=== PATIENT | male | born 1985 | race African-American/Black ===

== ENCOUNTER 2024-10-14 11:52 | Outpatient (CLI) | payer BC, SELFPAY ==
--- NOTE | ~2024-10-14 | CT_ITS ---
Non-contrast CT scan of the Abdomen Clinical indication: Umbilical hernia Technique: 2.5 mm axial scans were obtained through the abdomen without intravenous or oral contrast . Dose reduction technique was used on this scan by utilizing automated exposure control and iterativ e reconstruction technique. The dose-length product (DLP) was 706.47 mGy-cm. Findings: Images through the lung bases reveal no abnormalities. There is no evidence of renal or ureteral calculi. The kidneys and the ureters are nondilated. The liver, spleen, pancreas, gallbladder, and adrenals appear normal. There is no aortic aneurysm. S uggestion of minimal haziness in the central mesentery with small shotty lymph nodes. Visualized bowel loops are unremarkable.. No ascites. There is laxity of the anterior abdominal wall the umbilicus with diastases of the rectus abdominis muscles, without deborah hernia. Impression: Diastasis of the rectus abdominis muscles and laxity of the anterior abdominal wall without deborah her stephanie. 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 Reviewed, dictated and finalized at location M. CONTENT DEVELOPER Impression: Diastasis of the rectus abdominis muscles and laxity of the anterior abdominal wall without deborah hernia. 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
== END 2024-10-14 11:53 | disposition home or self-care (01) ==
PROVIDERS: PCP Surgery; Visit Provider Surgery
DX: M62.08 Separation of muscle (nontraumatic), other site (principal); K43.9 Ventral hernia without obstruction or gangrene
CPT/HCPCS: 74150

== ENCOUNTER 2024-11-13 10:01 | Outpatient (CLI) | payer BC, SELFPAY ==
--- OUTSIDE RECORDS SUMMARY | 2024-11-13 11:34 | XMS_ITS | Encounter Summary ---
Author Organization [facility] Address [facility] [place] [address] Care Team Providers Care [facility] Health [facility] Name Role Phone [facility] Primary Care Provider Filomena Shelley MD Primary Care Provider [phone] Encounter Details Date Type Department Care Team (Late st Contact Info) Description 11/02/2022 [employer] Message Enc [facility] Medical [employer] Family [address] [address] Anais Welch FNP-BC Question about meds Social History Tobacco Use Types Packs/Day Years Used Date Smoking Tobacco: Former Cigarettes 0.5 3 0 11/15/2005 - 11/15/2008 Smokeless Tobacco: Never Comments:I use to vape. For 1 year 2018 Alcohol Use Standard Drinks/Week Comments Yes 5 (1 standard drink = 0.6 oz pur e alcohol) Night caps PHQ-2 Answer Date Recorded Patient Health Questionnaire-2 Score 1 11/03/2022 Sex and Gender Information Value Date Recorded Sex Assigned at Not on file Legal Sex Male 8:56 AM CDT Gender Identity Not on file Sexual Orientation Not on file COVID-19 Exposure Response Date Recorded In the last 10 days, have yo u been in contact with someone who was confirmed or suspected to have Coronavirus/COVID-19? No / Unsure 11/03/2022 3:19 PM CHUTE PULLER documented as of this encounter Plan of Treatment Not on file documented as of this encounter Visit Diagnoses Not on filedocumented in this encounter Additional Health Concerns Assessment Noted Time PHQ-9 Depression Total Score: 0 07/20/20 21 8:02 AM CHUTE PULLER documented as of this encounter Care Teams Home Health Aid Relationship Specialty Start Date End Date Anais [facility] PCP - General NURSE PRACTITIONER 11/14/18 05/03/24 Filomena Warren MD [address] [place] [address] PCP - General FAMILY PRACTICE 05/04/24 documented as of this encounter
--- OUTSIDE RECORDS SUMMARY | 2024-11-13 11:34 | XMS_ITS | Encounter Summary ---
Author Organization [facility] Address [facility] [place] [address] Care Team Providers Care Venue Attendant Name Role Phone [facility] Primary Care Provider Filomena Shelley MD Primary Care Provider [phone] Encounter Details Date Type Department Care Team (Late st Contact Info) Description 07/09/2023 [employer] Message Enc [facility] Medical [facility] Family [address] [address] Anais Welch FNP-BC Blood work results Social History Tobacco Use Types Packs/Day Years Used Date Smoking Tobacco: Former Cigarettes 0.5 3 0 11/15/2005 - 11/15/2008 Smokeless Tobacco: Never Alcohol Use Standard Drinks/Week Comments Yes 2 (1 standard drink = 0.6 oz pur e alcohol) 2/week PHQ-2 Answer Date Recorded Patient Health Questionnaire-2 Score 0 07/05/2023 Sex and Gender Information Value Date Recorded Sex Assigned at Not on file Legal Sex Male 8:56 AM CDT Gender Identity Not on file Sexual Orientation Not on file documented as of this encounter Plan of Treatment Not on file documented as of this encounter Visit Diagnoses Not on filedocumented in this encounter Additional Health Concerns Assessment Noted Time PHQ-9 Depression Total Score: 0 07/05/20 23 1:23 PM CDT documented as of this encounter Care Teams Venue Attendant Relationship Specialty Start Date End Date Anais Welch FNP-BC PCP - General NURSE PRACTITIONER 11/14/18 05/03/24 Filomena Warren MD [address] [place] [address] PCP - General FAMILY PRACTICE 05/04/24 documented as of this encounter
--- OUTSIDE RECORDS SUMMARY | 2024-11-13 11:34 | XMS_ITS | Encounter Summary ---
Author Organization [facility] Address [facility] [place] [address] Care Team Providers Care Supply Chain Program Manager Name Role Phone Anais Welch Primary Care Provider Filomena Shelley MD Primary Care Provider [phone] Encounter Details Date Type Department Care Team (Late st Contact Info) Description 06/28/2023 [employer] Message Enc [facility] Medical [facility] Family [address] [address] Anais Welch FNP-BC Injury to hand Social History Tobacco Use Types Packs/Day Years [...] Total Score: 0 07/20/20 21 8:02 AM FACTORY MAINTENANCE MANAGER documented as of this encounter Care Teams Supply Chain Program Manager Relationship Specialty Start Date End Date Anais Welch FNP-BC PCP - General NURSE PRACTITIONER 11/14/18 05/03/24 Filomena Warren MD [address] [place] [address] PCP - General FAMILY PRACTICE 05/04/24 documented as of this encounter
--- OUTSIDE RECORDS SUMMARY | 2024-11-13 11:35 | XMS_ITS | Encounter Summary ---
Author Organization [facility] Address [facility] [place] [address] Care Team Providers Care Vat Cleaner Name Role Phone Anais Welch- Primary Care Provider Filomena Shelley MD Primary Care Provider [phone] Encounter Details Date Type Department Care Team (Late st Contact Info) Description 03/21/2024 Clip Message Enc [facility] Medical [facility] Family Medicine [address] [address] Anais Welch FNP-BC Pain in side Social History Tobacco Use Types Packs/Day Years [...] documented as of this encounter Care Teams Vat Cleaner Relationship Specialty Start Date End Date Anais Welch FNP-BC PCP - General NURSE PRACTITIONER 11/14/18 05/03/24 Filomena Warren MD [address] [place] [address] PCP - General FAMILY PRACTICE 05/04/24 documented as of this encounter
--- OUTSIDE RECORDS SUMMARY | 2024-11-13 11:35 | XMS_ITS | Encounter Summary ---
Author Organization [facility] Address [facility] [place] [address] Care Team Providers Care Heavy Equipment Rental Associate Name Role Phone Anais WelchGARY Primary Care Provider Filomena Shelley MD Primary Care Provider [phone] Encounter Details Date Type Department Care Team (Late st Contact Info) Description 05/28/2020 [employer] Message Enc [facility] Medical [facility] Family [address] [address] Anais Welch FNP-BC RE: Other Social History Tobacco Use Types Packs/Day Years Used Date Smoking Tobacco: Former Smokeless Tobacco: Never Alcohol Use Standard Drinks/Week Comments Yes 0 (1 standard drink = 0.6 oz pur e alcohol) socially PHQ-2 Answer Date Recorded PHQ-2 Score - If the patient scores above 3, please move on to questions 3-9 0 05/07/2020 Sex and Gender Information Value Date Recorded Sex Assigned at Not on file Legal Sex Male 8:56 AM CDT Gender Identity Not on file Sexual Orientation Not on file COVID-19 Exposure Response Date Recorded In the last month, have you been in contact with someone who was confirmed or suspected to have Coronavirus / COVID-19? No / Unsure 05/07/2020 8:57 AM CDT documented as of this encounter Plan of Treatment Not on file documented as of this encounter Visit Diagnoses Not on filedocumented in this encounter Care Teams Heavy Equipment Rental Associate Relationship Specialty Start Date End Date Anais Welch FNP-BC PCP - General NURSE PRACTITIONER 11/14/18 05/03/24 Filomena Warren MD [address] [place] [address] PCP - General FAMILY PRACTICE 05/04/24 documented as of this encounter
--- OUTSIDE RECORDS SUMMARY | 2024-11-13 11:35 | XMS_ITS | Clinical Summary ---
Author Organization [facility] Address [address] [place] [address] Care Team Providers Care Senior Applications Analyst Name Role Phone Filomena Warren MD Primary Care Provider [phone] Allergies No known active allergies Medications vitamin D2, ergocalciferol, (DRISDOL) 17007 UNITS capsuleIndicatio ns:Vitamin D deficiency TAKE 1 CAPSULE BY MOUTH ONE TIME PER WEEK 12 capsule 3 3 Active montelukast (SINGULAIR) 10 MG tabletIndication s:Seasonal allergies Take 1 tablet (10 mg total) by mouth nightly at bedtime. 90 tablet 2 3 Active fluticasone propionate (FLONASE) 50 MCG/ACT nasal sprayIndications :Seasonal allergies Gently sniff one to two spray(s)/nostri l daily 16 g 3 3 Active Additional Information Patient not taking.Reported on 07/05/2023 loratadine (CLARITIN) 10 MG tabletIndication s:Seasonal allergies Take 1 tablet (10 mg total) by mouth daily. 90 tablet 3 3 Active omeprazole (PRILOSEC) 40 MG capsuleIndicatio ns:Gastroesophag eal reflux disease with esophagitis without hemorrhage TAKE 1 CAPSULE (40 MG TOTAL) BY MOUTH DAILY. 90 capsule 1 3 Active Additional Information Patient not taking.Reported on 07/05/2023 L-Glutamine 500 MG Cap Take 1,000 mg by mouth 2 (two) times a day. Before and after workouts Active Nutritional Supplements (ADULT NUTRITIONAL SUPPLEMENT + OR) Take 3 tablets by mouth daily. Preworkout Active Glucosamine Sulfate 1000 MG Cap Take 1 tablet by mouth daily. Active Multiple Vitamins-Mineral s (MULTIVITAMIN ADULT, MINERALS,) Tab Take 1 tablet by mouth daily. Active Active Problems Patient Care Coordination No te Formatting of this note migh t be different from the original. [facility] [place] Problem Noted Date Diagnosed Date History of COVID-19 10/04/2022 Overview (10/04/2022): +01/14/22 Hypercholesteremia 07/20/2021 Seasonal allergies 02/05/2020 Sensorineural hearing loss (SNHL) of both ears 0 02/05/2020 Vitamin D deficiency 12/04/2018 Elevated liver enzymes 12/04/2018 Gastroesophageal reflux disease with esophagitis 11/25/2018 Frequent headaches 11/25/2018 Resolved Problems Problem Noted Date Diagnosed Date Resolved Date COVID-19 01/25/2022 10/04/2022 Overview (01/25/2022): Covid + 01/14/2022 Immunizations Name Administration Dates Next Due Fluzone 6 Months+ Quad (0.5 mL Prefilled Syringe) 07/05/2023,06/10/2021 Influenza Adult (Generic) 06/22/2019 PFIZER COVID-19 (ORIGINAL FO RMULATION, PURPLE CAP) mRNA, LNP-S, PF, 30 MCG/0.3 ML DOSE 08/03/2021,12/14/2020,11/23/2020 Family History Medical History Relation Comments Deep vein thrombosis Father Hypertension Father Cancer Maternal Aunt breast Alzheimers Maternal Grandfather Diabetes Maternal Grandfather Stroke Maternal Grandfather Alzheimers Maternal Grandmother Diabetes Maternal Grandmother Stroke Maternal Grandmother Cancer Maternal Uncle colon Diabetes Mother Heart Disease Mother Hypertension Mother Alzheimers Paternal Grandmother Relation Status Comments Father Alive Maternal Aunt Maternal Grandfather Maternal Grandmother Maternal Uncle Mother Alive Paternal Grandmother Social History Tobacco Use Types Packs/Day Years Used Date Smoking Tobacco: Former Cigarettes 0.5 3 0 11/15/2005 - 11/15/2008 Smokeless Tobacco: Never Tobacco Cessation:Counseling Given: No Alcohol Use Standard Drinks/Week Comments Yes 2 (1 standard drink = 0.6 oz pur e alcohol) 2/week PHQ-2 Answer Date Recorded Patient Health Questionnaire-2 Score 0 07/05/2023 Sex and Gender Information Value Date Recorded Sex Assigned at Not on file Legal Sex Male 8:56 AM CDT Gender Identity Not on file Sexual Orientation Not on file Last Filed Vital Signs Vital Sign Reading Time Taken Comments Blood Pressure 128/84 07/05/2023 1:10 PM CDT Pulse 92 07/05/2023 1:10 PM CDT Temperature 36.8 C (98.2 F) 11/03/2022 3:21 PM TELECOMMUNICATIONS ADMINISTRATOR Respiratory Rate 12 07/05/2023 1:10 PM CDT Oxygen Saturation 97% 07/05/2023 1:10 PM CDT Inhaled Oxygen Concentration - - Weight 125.6 kg (277 lb) 07/05/2023 1:10 PM CDT Height 193 cm (6' 4 ) 07/05/2023 1:10 PM CDT Body Mass Index 33.72 07/05/2023 1:10 PM CDT Plan of Treatment Health Maintenance Due Date Last Done Comments Hepatitis C 2003 DTaP, Tdap and Td Vaccines (1 - Tdap) 2004 Hepatitis B Vaccines (1 of 3 - 19+ 3-dose series) 2004 COVID-19 Vaccine ( season) 2024 08/03/2021, 12/14/2020, 11/23/2020 Influenza Adult (#1) 2024 07/05/2023, 06/10/2021, 06/22/2019 Annual Physical 07/05/2024 07/05/2023, 07/04, 05/07/2020, Additional history exists PHQ-2 (Physician [place]) 09/03/2024 07/05/2023 HPV Vaccines Aged Out No longer eligi ble based on patient's age to complete this topic Meningococcal B Vaccine Aged Out No l onger eligible based on patient's age to complete this topic Meningococcal Vaccine Aged Out No carlos yue eligible based on patient's age to complete this topic Pneumococcal Vaccine: Pediatrics (0 to 5 Years) and At-Risk Patients (6 to 64 Years) Aged Out No longer eligible based on patient's age to complete this topic RSV Immunizations Under 20 Months Aged Out No longer eligible based on patient's age to complete this topic Insurance [facility] Care Teams Senior Applications Analyst Relationship Specialty Start Date End Date Filomena Warren MD [address] [place] [address] PCP - General FAMILY PRACTICE 05/04/24
--- OUTSIDE RECORDS SUMMARY | 2024-11-13 11:35 | XMS_ITS | Patient Health Summary ---
Author Organization [facility] Address [address] [place] [address] Care Team Providers Care Prosthetist Name Role Phone Sera Alegre MD Primary Care Provider Note from [facility],non-owned Affiliates and Associated Physician Practices is amultiple site organization consisting of ambulatory clinics and hospital sitesin [place], [place], [place] and [place]. This disclosure is being madepursuant to the Care Everywhere program and may not contain all information available regarding this patient. Last updated 18.[facility] Allergies No known active allergies Medications * Be aware that medications may not be up to date on this document. Alwaysverify current medications with the patient. * Loratadine (Claritin) 10 MG(Started 09/24/2017) * montelukast (Singulair) 10 MG tablet(Started 09/24/2019) * vitamin D, ergocalciferol, (Drisdol) 1.25 MG (53234 UT) capsule Take 1 (one) capsule by mouth every 30 days Active Problems Problem Noted Date Diagnosed Date History of COVID-19 10/04/2022 Hypercholesteremia 07/20/2021 Seasonal allergies 02/05/2020 Sensorineural hearing loss (SNHL) of both ears 0 02/05/2020 Elevated liver enzymes 12/04/2018 Vitamin D deficiency 12/04/2018 Frequent headaches 11/25/2018 Gastroesophageal reflux disease with esophagitis 11/25/2018 Immunizations * INFLUENZA VACCINE(Given 06/25/2024) * INFLUENZA VACCINE, QUADR. (FLUZONE; FLULAVAL; FLUARIX; AFLURIA QUADRIVALENT; 6MO+), 0.5 ML (IIV4)(Given 07/05/2023, 06/10/2021, 06/22/2019) * INFLUENZA VACCINE, TRIV. (FLUZONE; FLULAVAL; FLUARIX; AFLURIA TRIVALENT; 6MO+), 0.5 ML (IIV3)(Given 09/24/2024) Social History Tobacco Use Types Packs/Day Years Used Date Smoking Tobacco: Never Smokeless Tobacco: Never Tobacco Cessation:Counseling Given: Not Answered Alcohol Use Standard Drinks/Week Comments Yes 5 (1 standard drink = 0.6 oz pur e alcohol) PHQ-2 Answer Date Recorded Patient Health Questionnaire-2 Score 0 09/24/2024 Sex and Gender Information Value Date Recorded Sex Assigned at Not on file Gender Identity Not on file Sexual Orientation Not on file Last Filed Vital Signs Vital Sign Reading Time Taken Comments Blood Pressure 134/84 09/24/2024 10:51 AM NET SQL DEVELOPER Pulse 80 09/24/2024 10:51 AM NET SQL DEVELOPER Temperature - - Respiratory Rate - - Oxygen Saturation 97% 09/24/2024 10:51 AM NET SQL DEVELOPER Inhaled Oxygen Concentration - - Weight 123.8 kg (273 lb) 09/24/2024 10:51 AM NET SQL DEVELOPER Height 193 cm (6' 4 ) 09/24/2024 10:51 AM NET SQL DEVELOPER Body Mass Index 33.23 09/24/2024 10:51 AM NET SQL DEVELOPER Procedures * HIV-1 HIV-2 ANTIBODY + HIV P24 AG PANEL(Performed 09/29/2024) Performed for Healthcare maintenance * HEPATITIS C ANTIBODY W RFLX PCR(Performed 09/29/2024) Performed for Healthcare maintenance * TSH REFLEX FREE T4(Performed 09/29/2024) Performed for Healthcare maintenance, Class 1 obesity due to excess calories with body mass index (BMI) of 33.0 to 33.9 in adult, unspecified whether serious comorbidity present * LIPID PROFILE(Performed 09/29/2024) Performed for Healthcare maintenance * HEMOGLOBIN A1C(Performed 09/29/2024) Performed for Healthcare maintenance, Class 1 obesity due to excess calories with body mass index (BMI) of 33.0 to 33.9 in adult, unspecified whether serious comorbidity present * COMPREHENSIVE METABOLIC PANEL(Performed 09/29/2024) Performed for Healthcare maintenance * CBC W AUTO DIFFERENTIAL(Performed 09/29/2024) Performed for Healthcare maintenance Results * HEPATITIS C ANTIBODY W RFLX PCR (09/29/2024 8:29 AM NET SQL DEVELOPER) Pathologist [facility] Hepatitis C Antibody Non Reactive Non Reactive [facility] INSURANCE BILL Comment: Performed at: [address] [place] [id number] Slat Basket Maker Helper Machine: Pipo Melo PhD, Phone: [phone] Interpretation Comment [facility] INSURANCE BILL Comment: Not infected with HCV unless early or acute infection is suspected (which may be delayed in an immunocompromised individual), or other evidence exists to indicate HCV infection. Blood BLOOD SPECIMEN / Unknown 09/29/2024 8:29 AM NET SQL DEVELOPER 09/29/2024 Narrative [facility] INSURANCE BILL - 09/30/2024 6:09 AM NET SQL DEVELOPER Performed at: [address] [place] [address] [id number] Slat Basket Maker Helper Machine: Pipo Melo PhD, Phone: [phone] Sera Alegre MD LAB - CHEMISTRY ORDERABLES Performing Organization Address City/[facility]/ZIP Co de Phone Number [facility] INSURANCE BILL [address] [place] [address] * HIV-1 HIV-2 ANTIBODY + HIV P24 AG PANEL (09/29/2024 8:29 AM NET SQL DEVELOPER) [facility] HIV Screen 4th Generation w Reflex Non Reactive Non Reactive [facility] INSURANCE BILL Comment: HIV-1/HIV-2 antibodies and HIV-1 p24 antigen were NOT detected. There is no laboratory evidence of HIV infection. HIV Negative Blood BLOOD SPECIMEN / Unknown 09/29/2024 8:29 AM NET SQL DEVELOPER 09/29/2024 Narrative [facility] INSURANCE BILL - 09/30/2024 6:09 AM NET SQL DEVELOPER Performed at: [address] [place] [address] [id number] Slat Basket Maker Helper Machine: Pipo Melo PhD, Phone: [phone] Sera Alegre MD LAB - CHEMISTRY ORDERABLES Performing Organization Address City/[facility]/ZIP Co de Phone Number [facility] INSURANCE BILL [address] [place] [address] * TSH REFLEX FREE T4 (09/29/2024 8:29 AM NET SQL DEVELOPER) Pathologist [facility] TSH 1.370 0.450 - 4.500 uIU/mL [facility] INSURANCE BILL Blood BLOOD SPECIMEN / Unknown 09/29/2024 8:29 AM NET SQL DEVELOPER 09/29/2024 Narrative [facility] INSURANCE BILL - 09/30/2024 6:09 AM NET SQL DEVELOPER Performed at: - [address] [id number] Slat Basket Maker Helper Machine: Pipo Melo PhD, Phone: [phone] Sera Alegre MD LAB - CHEMISTRY ORDERABLES Performing Organization Address [facility] Co de Phone Number [facility] INSURANCE BILL [address] [place] [address] * HEMOGLOBIN A1C (09/29/2024 8:29 AM NET SQL DEVELOPER) [facility] Hemoglobin A1c 5.5 4.8 - 5.6 % [facility] INSURANCE BILL Comment: Prediabetes: 5.7 - 6.4 Diabetes: >6.4 Glycemic control for adults with diabetes: <7.0 Blood BLOOD SPECIMEN WITH EDTA / Unknown 09/29/2024 8:29 AM NET SQL DEVELOPER 09/29/2024 Narrative [facility] INSURANCE BILL - 09/30/2024 6:09 AM NET SQL DEVELOPER Performed at: [address] [id number] Slat Basket Maker Helper Machine: Pipo Melo PhD, Phone: [phone] Sera Alegre MD LAB - CHEMISTRY ORDERABLES Performing Organization Address City/[facility] Co de Phone Number [facility] INSURANCE BILL [address] [place] [address] * CBC WITH DIFFERENTIAL (09/29/2024 8:29 AM NET SQL DEVELOPER) Pathologist [facility] WBC 5.6 3.4 - 10.8 x10E3/uL [facility] INSURANCE BILL RBC 4.64 4.14 - 5.80 x10E6/uL [facility] INSURANCE BILL Hemoglobin 14.5 13.0 - 17.7 g/dL [facility] INSURANCE BILL Hematocrit 42.9 37.5 - 51.0 % [facility] INSURANCE BILL MCV 93 79 - 97 fL [facility] INSURANCE BILL MCH 31.3 26.6 - 33.0 pg [facility] INSURANCE BILL MCHC 33.8 31.5 - 35.7 g/dL [facility] INSURANCE BILL RDW 13.0 11.6 - 15.4 % [facility] INSURANCE BILL Platelet Count 322 150 - 450 x10E3/uL [facility] INSURANCE BILL Granulocytes % 40 Not Estab. % [facility] INSURANCE BILL Lymphocytes % 44 Not Estab. % [facility] INSURANCE BILL Monocytes % 9 Not Estab. % [facility] INSURANCE BILL Eosinophils % 6 Not Estab. % [facility] INSURANCE BILL Basophils % 1 Not Estab. % [facility] INSURANCE BILL Granulocytes Absolute 2.2 1.4 - 7.0 x10E3/uL [facility] INSURANCE BILL Lymphocytes Absolute 2.4 0.7 - 3.1 x10E3/uL [facility] INSURANCE BILL Monocytes Absolute 0.5 0.1 - 0.9 x10E3/uL [facility] INSURANCE BILL Eosinophils Absolute 0.3 0.0 - 0.4 x10E3/uL [facility] INSURANCE BILL Basophils Absolute 0.0 0.0 - 0.2 x10E3/uL [facility] INSURANCE BILL Immature Granulocytes 0 Not Estab. % [facility] INSURANCE BILL Immature Granulocytes Absolute 0.0 0.0 - 0.1 x10E3/uL [facility] INSURANCE BILL Blood BLOOD SPECIMEN / Unknown 09/29/2024 8:29 AM NET SQL DEVELOPER 09/29/2024 Narrative [facility] INSURANCE BILL - 09/30/2024 12:06 AM NET SQL DEVELOPER Performed at: 01 - [facility] [address] [place] [address] [id number] Slat Basket Maker Helper Machine: Pipo Melo PhD, Phone: [phone] Sera Alegre MD LAB - HEMATOLOG Y ORDERABLES [facility] INSURANCE BILL [address] [place] [address] * COMPREHENSIVE METABOLIC PANEL (09/29/2024 8:29 AM NET SQL DEVELOPER) Glucose 94 70 - 99 mg/dL [facility] INSURANCE BILL BUN 15 6 - 20 mg/dL [facility] INSURANCE BILL Creatinine 1.22 0.76 - 1.27 mg/dL [facility] INSURANCE BILL eGFR by CKD-EPI 78 >59 mL/min/1.7 3 [facility] INSURANCE BILL BUN/Creatinine Ratio 12 9 - 20 [facility] INSURANCE BILL Sodium 138 134 - 144 mmol/L [facility] INSURANCE BILL Potassium 4.4 3.5 - 5.2 mmol/L [facility] INSURANCE BILL Chloride 101 96 - 106 mmol/L [facility] INSURANCE BILL CO2 24 20 - 29 mmol/L [facility] INSURANCE BILL Calcium 9.5 8.7 - 10.2 mg/dL [facility] INSURANCE BILL Protein Total 7.3 6.0 - 8.5 g/dL [facility] INSURANCE BILL Albumin 4.4 4.1 - 5.1 g/dL [facility] INSURANCE BILL Globulin Total 2.9 1.5 - 4.5 g/dL [facility] INSURANCE BILL Bilirubin Total 0.4 0.0 - 1.2 mg/dL [facility] INSURANCE BILL Alkaline Phosphatase 85 44 - 121 IU/L [facility] INSURANCE BILL AST 22 0 - 40 IU/L [facility] INSURANCE BILL ALT 28 0 - 44 IU/L [facility] INSURANCE BILL Blood BLOOD SPECIMEN / Unknown 09/29/2024 8:29 AM NET SQL DEVELOPER 09/29/2024 Narrative [facility] INSURANCE BILL - 09/30/2024 6:09 AM NET SQL DEVELOPER Performed at: [id number] [place], [place] [id number] Slat Basket Maker Helper Machine: Pipo Melo PhD, Phone: [phone] Sera Alegre MD LAB - CHEMISTRY ORDERABLES [facility] INSURANCE BILL [address] [place] [address] * (ABNORMAL) LIPID PROFILE (09/29/2024 8:29 AM NET SQL DEVELOPER) Cholesterol 205(H) 100 - 199 mg/dL [facility] INSURANCE BILL Triglycerides 172(H) 0 - 149 mg/dL [facility] INSURANCE BILL HDL Cholesterol 45 >39 mg/dL [facility] INSURANCE BILL VLDL Calculated 31 5 - 40 mg/dL [facility] INSURANCE BILL LDL Calculated 129(H) 0 - 99 mg/dL [facility] INSURANCE BILL Blood BLOOD SPECIMEN / Unknown 09/29/2024 8:29 AM NET SQL DEVELOPER 09/29/2024 Narrative [facility] INSURANCE BILL - 09/30/2024 6:09 AM NET SQL DEVELOPER Performed at: 01 - [address] [id number] Slat Basket Maker Helper Machine: Pipo Melo PhD, Phone: [phone] Sera Alegre MD LAB - CHEMISTRY ORDERABLES [facility] INSURANCE BILL [address] [place] [address] Care Teams Prosthetist Relationship Specialty Start Date End Date Sera Alegre MD [address] [place] [id number] PCP - General Internal Medicine 09/24/24
--- OUTSIDE RECORDS SUMMARY | 2024-11-13 11:35 | XMS_ITS | Referral Summary ---
Author Organization [facility] Address [address] [place] [address] Care Team Providers Care Exerciser Horse Name Role Phone Sera Alegre MD Primary Care Provider Source Comments [facility],non-owned Affiliates and Associated Physician Practices is amultiple site organization consisting of ambulatory clinics and hospital sitesin [place], [place], [place] and [place]. This disclosure is being madepursuant to the Care Everywhere program and may not contain all information available regarding this patient. Last updated 18.[facility] Encounters Date Type Department Care Team Description 09/24/2024 10:40 AM EQUIPMENT MAN Office Visit [facility] - Family Medicine [address] [facility] [address] [place] [address] Sera Alegre MD Encounter to establish care (Primary Dx); Healthcare maintenance; Class 1 obesity due to excess calories with body mass index (BMI) of 33.0 to 33.9 in adult, unspecified whether serious comorbidity present; Diastasis recti; Umbilical hernia without obstruction and without gangrene; Need for influenza vaccination from Last 3 Months Allergies No known active allergies Medications * Be aware that medications may not be up to date on this document. Alwaysverify current medications with the patient. Medication Sig Dispensed Refills Start Date End Date Status Loratadine (Claritin) 10 MG 09/24/2017 Active montelukast (Singulair) 10 MG tablet 09/24/2019 Active vitamin D, ergocalciferol, (Drisdol) 1.25 MG (73245 UT) capsule Take 1 (one) capsule by mouth every 30 days Active Active Problems Problem Noted Date Diagnosed Date History of COVID-19 10/04/2022 Overview (09/24/2024): +01/14/22 Hypercholesteremia 07/20/2021 Seasonal allergies 02/05/2020 Sensorineural hearing loss (SNHL) of both ears 0 02/05/2020 Elevated liver enzymes 12/04/2018 Vitamin D deficiency 12/04/2018 Frequent headaches 11/25/2018 Gastroesophageal reflux disease with esophagitis 11/25/2018 Immunizations Name Administration Dates Next Due INFLUENZA VACCINE 06/25/2024 INFLUENZA VACCINE, QUADR. (F LUZONE; FLULAVAL; FLUARIX; AFLURIA QUADRIVALENT; 6MO+), 0.5 ML (IIV4) 07/05/2023,06/10/2021,06/22/2019 INFLUENZA VACCINE, TRIV. (FL UZONE; FLULAVAL; FLUARIX; AFLURIA TRIVALENT; 6MO+), 0.5 ML (IIV3) 09/24/2024 Social History Tobacco Use Types Packs/Day Years [...] Comments Blood Pressure 134/84 09/24/2024 10:51 AM EQUIPMENT MAN Pulse 80 09/24/2024 10:51 AM EQUIPMENT MAN Temperature - - Respiratory Rate - - Oxygen Saturation 97% 09/24/2024 10:51 AM EQUIPMENT MAN Inhaled Oxygen Concentration - - Weight 123.8 kg (273 lb) 09/24/2024 10:51 AM EQUIPMENT MAN Height 193 cm (6' 4 ) 09/24/2024 10:51 AM EQUIPMENT MAN Body Mass Index 33.23 09/24/2024 10:51 AM EQUIPMENT MAN Plan of Treatment Not on file Procedures Procedure Name Priority Date/Time Associated Diagnosis Comments HIV-1 HIV-2 ANTIBODY + HIV P24 AG PANEL Routine 09/29/2024 8:29 AM EQUIPMENT MAN Healthcare maintenance HEPATITIS C ANTIBODY W RFLX PCR Routine 09/29/2024 8:29 AM EQUIPMENT MAN Healthcare maintenance TSH REFLEX FREE T4 Routine 09/29/2024 8: 29 AM EQUIPMENT MAN Healthcare maintenance Class 1 obesity due to excess calories with body mass index (BMI) of 33.0 to 33.9 in adult, unspecified whether serious comorbidity present LIPID PROFILE Routine 09/29/2024 8:29 AM EQUIPMENT MAN Healthcare maintenance HEMOGLOBIN A1C Routine 09/29/2024 8:29 AM EQUIPMENT MAN Healthcare maintenance Class 1 obesity due to excess calories with body mass index (BMI) of 33.0 to 33.9 in adult, unspecified whether serious comorbidity present COMPREHENSIVE METABOLIC PANEL Routine 09/29/2024 8:29 AM EQUIPMENT MAN Healthcare maintenance CBC W AUTO DIFFERENTIAL Routine 09/29/2024 8:29 AM EQUIPMENT MAN Healthcare maintenance from Last 3 Months Results * HEPATITIS C ANTIBODY W RFLX PCR (09/29/2024 8:29 AM EQUIPMENT MAN) Hepatitis C Antibody Non Reactive Non Reactive [facility] INSURANCE BILL Comment: Performed at: [address] [id number] Shot Hole Driller: Pipo Melo PhD, Phone: [phone] Interpretation Comment [facility] INSURANCE BILL Comment: Not infected with HCV unless early or acute infection is suspected (which may be delayed in an immunocompromised individual), or other evidence exists to indicate HCV infection. Blood BLOOD SPECIMEN / Unknown 09/29/2024 8:29 AM EQUIPMENT MAN 09/29/2024 Narrative [facility] INSURANCE BILL - 09/30/2024 6:09 AM EQUIPMENT MAN Performed at: [facility] [address] [id number] Shot Hole Driller: Pipo Melo PhD, Phone: [phone] Sera Alegre MD LAB - CHEMISTRY ORDERABLES Performing Organization Address City/[facility]/ZIP Co de Phone Number [facility] INSURANCE BILL [address] [place] [address] * HIV-1 HIV-2 ANTIBODY + HIV P24 AG PANEL (09/29/2024 8:29 AM EQUIPMENT MAN) [facility] HIV Screen 4th Generation w Reflex Non Reactive Non Reactive [facility] INSURANCE BILL Comment: HIV-1/HIV-2 antibodies and HIV-1 p24 antigen were NOT detected. There is no laboratory evidence of HIV infection. HIV Negative Blood BLOOD SPECIMEN / Unknown 09/29/2024 8:29 AM EQUIPMENT MAN 09/29/2024 Narrative [facility] INSURANCE BILL - 09/30/2024 6:09 AM EQUIPMENT MAN Performed at: [address] [place] [id number] Shot Hole Driller: Pipo Melo PhD, Phone: [phone] Sera Alegre MD LAB - CHEMISTRY ORDERABLES Performing Organization Address [facility] Co de Phone Number [facility] INSURANCE BILL [address] [place] [address] * TSH REFLEX FREE T4 (09/29/2024 8:29 AM EQUIPMENT MAN) [facility] TSH 1.370 0.450 - 4.500 uIU/mL [facility] INSURANCE BILL Blood BLOOD SPECIMEN / Unknown 09/29/2024 8:29 AM EQUIPMENT MAN 09/29/2024 Narrative [facility] INSURANCE BILL - 09/30/2024 6:09 AM EQUIPMENT MAN Performed at: [address] [place] [id number] Shot Hole Driller: Pipo Melo PhD, Phone: [phone] Sera Alegre MD LAB - CHEMISTRY ORDERABLES Performing Organization Address City/[facility]/ZIP Co de Phone Number [facility] INSURANCE BILL [address] [place] [address] * HEMOGLOBIN A1C (09/29/2024 8:29 AM EQUIPMENT MAN) [facility] Hemoglobin A1c 5.5 4.8 - 5.6 % [facility] INSURANCE BILL Comment: Prediabetes: 5.7 - 6.4 Diabetes: >6.4 Glycemic control for adults with diabetes: <7.0 Blood BLOOD SPECIMEN WITH EDTA / Unknown 09/29/2024 8:29 AM EQUIPMENT MAN 09/29/2024 Narrative [facility] INSURANCE BILL - 09/30/2024 6:09 AM EQUIPMENT MAN Performed at: - [facility] [id number] Shot Hole Driller: Pipo Melo PhD, Phone: [phone] Sera Alegre MD LAB - CHEMISTRY ORDERABLES [facility] INSURANCE BILL [address] [place] [address] * CBC WITH DIFFERENTIAL (09/29/2024 8:29 AM EQUIPMENT MAN) Pathologist [facility] WBC 5.6 3.4 - 10.8 x10E3/uL [facility] [...] BLOOD SPECIMEN / Unknown 09/29/2024 8:29 AM EQUIPMENT MAN 09/29/2024 Narrative [facility] INSURANCE BILL - 09/30/2024 12:06 AM EQUIPMENT MAN Performed at: 01 - [id number] [place], [place] [id number] Shot Hole Driller: Pipo Melo PhD, Phone: [phone] Sera Alegre MD LAB - HEMATOLOG Y ORDERABLES Performing Organization Address City/State/[facility] Co de Phone Number [facility] INSURANCE BILL [address] [place] [address] * COMPREHENSIVE METABOLIC PANEL (09/29/2024 8:29 AM EQUIPMENT MAN) Glucose 94 70 - 99 mg/dL [facility] [...] BLOOD SPECIMEN / Unknown 09/29/2024 8:29 AM EQUIPMENT MAN 09/29/2024 Narrative [facility] INSURANCE BILL - 09/30/2024 6:09 AM EQUIPMENT MAN Performed at: - [facility] [address] [id number] Shot Hole Driller: Pipo Melo PhD, Phone: [phone] Sera Alegre MD LAB - CHEMISTRY ORDERABLES [facility] INSURANCE BILL [address] [place] [address] * (ABNORMAL) LIPID PROFILE (09/29/2024 8:29 AM EQUIPMENT MAN) Cholesterol 205(H) 100 - 199 mg/dL [facility] INSURANCE BILL Triglycerides 172(H) 0 - 149 mg/dL [facility] INSURANCE BILL HDL Cholesterol 45 >39 mg/dL [facility] INSURANCE BILL VLDL Calculated 31 5 - 40 mg/dL [facility] INSURANCE BILL LDL Calculated 129(H) 0 - 99 mg/dL [facility] INSURANCE BILL Blood BLOOD SPECIMEN / Unknown 09/29/2024 8:29 AM EQUIPMENT MAN 09/29/2024 Narrative [facility] INSURANCE BILL - 09/30/2024 6:09 AM EQUIPMENT MAN Performed at: - [facility] [address] [id number] Shot Hole Driller: Pipo Melo PhD, Phone: [phone] Sera Alegre MD LAB - CHEMISTRY ORDERABLES [facility] INSURANCE BILL [address] [place] [address] from Last 3 Months Care Teams Exerciser Horse Relationship Specialty Start Date End Date Sera Alegre MD [address] [address] PCP - General Internal Medicine 09/24/24
--- OUTSIDE RECORDS SUMMARY | 2024-11-13 11:35 | XMS_ITS | Clinical Summary ---
Author Organization [facility] Address [address] [place] [address] Care Team Providers Care Shopfitter Name Role Phone Sera Alegre MD Primary Care Provider Source Comments [facility],non-owned Affiliates and Associated Physician Practices is amultiple site organization consisting of ambulatory clinics and hospital sitesin [place], [place], [place] and [place]. This disclosure is being madepursuant to the Care Everywhere program and may not contain all information available regarding this patient. Last updated 18.[facility] Allergies No known active allergies Medications * Be aware that medications may not be up to date on this document. Alwaysverify current medications with the patient. Medication Sig Dispensed Refills Start Date End Date Status Loratadine (Claritin) 10 MG 09/24/2017 Active montelukast (Singulair) 10 MG tablet 09/24/2019 Active vitamin D, ergocalciferol, (Drisdol) 1.25 MG (33082 UT) capsule Take 1 (one) capsule by mouth every 30 days Active Active Problems Problem Noted Date Diagnosed Date History of COVID-19 10/04/2022 Overview (09/24/2024): +01/14/22 Hypercholesteremia 07/20/2021 Seasonal allergies 02/05/2020 Sensorineural hearing loss (SNHL) of both ears 0 02/05/2020 Elevated liver enzymes 12/04/2018 Vitamin D deficiency 12/04/2018 Frequent headaches 11/25/2018 Gastroesophageal reflux disease with esophagitis 11/25/2018 Encounters Date Type Department Care Team Description 09/24/2024 10:40 AM BILINGUAL HR GENERALIST Office Visit [facility] Medical [facility] - Family Medicine [address] [facility], [address] [address] Sera Alegre MD Encounter to establish care (Primary Dx); Healthcare maintenance; Class 1 obesity due to excess calories with body mass index (BMI) of 33.0 to 33.9 in adult, unspecified whether serious comorbidity present; Diastasis recti; Umbilical hernia without obstruction and without gangrene; Need for influenza vaccination from Last 3 Months Immunizations Name Administration Dates Next Due INFLUENZA VACCINE 06/25/2024 INFLUENZA VACCINE, QUADR. (F LUZONE; FLULAVAL; FLUARIX; AFLURIA QUADRIVALENT; 6MO+), 0.5 ML (IIV4) 07/05/2023,06/10/2021,06/22/2019 INFLUENZA VACCINE, TRIV. (FL UZONE; FLULAVAL; FLUARIX; AFLURIA TRIVALENT; 6MO+), 0.5 ML (IIV3) 09/24/2024 Family History Medical History Relation Name Comments Anxiety Disorder Daughter Blood Clots Father Hypertension Father Diabetes - Type 2 Mother Hypertension Mother Bipolar Disorder Sister ADD/ADHD Son Relation Name Status Comments Daughter Alive Father Alive Mother Alive Sister Son Alive Social History Tobacco Use Types Packs/Day Years [...] Comments Blood Pressure 134/84 09/24/2024 10:51 AM BILINGUAL HR GENERALIST Pulse 80 09/24/2024 10:51 AM BILINGUAL HR GENERALIST Temperature - - Respiratory Rate - - Oxygen Saturation 97% 09/24/2024 10:51 AM BILINGUAL HR GENERALIST Inhaled Oxygen Concentration - - Weight 123.8 kg (273 lb) 09/24/2024 10:51 AM BILINGUAL HR GENERALIST Height 193 cm (6' 4 ) 09/24/2024 10:51 AM BILINGUAL HR GENERALIST Body Mass Index 33.23 09/24/2024 10:51 AM BILINGUAL HR GENERALIST Plan of Treatment Health Maintenance Due Date Last Done Comments DTAP/TDAP/TD VACCINES (1 - Tdap) 2004 HEPATITIS B VACCINE (1 of 3 - 19+ 3-dose series) 2004 COVID-19 VACCINE (4 - season) 2024 08/03/2021, 12/14/2020, 11/23/2020 ZOSTER VACCINE (1 of 2) 2035 DEPRESSION SCREENING Completed 09/24/2024 INFLUENZA VACCINE Completed 09/24/2024, , 07/05/2023, Additional history exists HEPATITIS C SCREENING Completed 09/29/2024 HIV SCREENING Completed 09/29/2024 HIB VACCINE Aged Out No longer eligi ble based on patient's age to complete this topic HPV VACCINE Aged Out No longer eligi ble based on patient's age to complete this topic MENINGOCOCCAL (Group B) VACCINE SHARED DECISION-MAKING Aged Out No longer eligible based on patient's age to complete this topic MENINGOCOCCAL GROUPS A/C/Y/W VACCINE Aged Out No longer eligible based on patient's age to complete this topic PNEUMOCOCCAL VACCINE Aged Out No long er eligible based on patient's age to complete this topic Procedures Procedure Name Priority Date/Time Associated Diagnosis Comments HIV-1 HIV-2 ANTIBODY + HIV P24 AG PANEL Routine 09/29/2024 8:29 AM BILINGUAL HR GENERALIST Healthcare maintenance HEPATITIS C ANTIBODY W RFLX PCR Routine 09/29/2024 8:29 AM BILINGUAL HR GENERALIST Healthcare maintenance TSH REFLEX FREE T4 Routine 09/29/2024 8: 29 AM BILINGUAL HR GENERALIST Healthcare maintenance Class 1 obesity due to excess calories with body mass index (BMI) of 33.0 to 33.9 in adult, unspecified whether serious comorbidity present LIPID PROFILE Routine 09/29/2024 8:29 AM BILINGUAL HR GENERALIST Healthcare maintenance HEMOGLOBIN A1C Routine 09/29/2024 8:29 AM BILINGUAL HR GENERALIST Healthcare maintenance Class 1 obesity due to excess calories with body mass index (BMI) of 33.0 to 33.9 in adult, unspecified whether serious comorbidity present COMPREHENSIVE METABOLIC PANEL Routine 09/29/2024 8:29 AM BILINGUAL HR GENERALIST Healthcare maintenance CBC W AUTO DIFFERENTIAL Routine 09/29/2024 8:29 AM BILINGUAL HR GENERALIST Healthcare maintenance from Last 3 Months Results * HEPATITIS C ANTIBODY W RFLX PCR (09/29/2024 8:29 AM BILINGUAL HR GENERALIST) Hepatitis C Antibody Non Reactive Non Reactive [facility] INSURANCE BILL Comment: Performed at: - [address] [id number] Energy Consultant: Pipo Melo PhD, Phone: [phone] Interpretation Comment [facility] INSURANCE BILL Comment: Not infected with HCV unless early or acute infection is suspected (which may be delayed in an immunocompromised individual), or other evidence exists to indicate HCV infection. Blood BLOOD SPECIMEN / Unknown 09/29/2024 8:29 AM BILINGUAL HR GENERALIST 09/29/2024 Narrative [facility] INSURANCE BILL - 09/30/2024 6:09 AM BILINGUAL HR GENERALIST Performed at: [address] [place] [id number] Energy Consultant: Pipo Melo PhD, Phone: [phone] Sera Alegre MD LAB - CHEMISTRY ORDERABLES [facility] INSURANCE BILL [address] [place] [address] * HIV-1 HIV-2 ANTIBODY + HIV P24 AG PANEL (09/29/2024 8:29 AM BILINGUAL HR GENERALIST) Pathologist [facility] HIV Screen 4th Generation w Reflex Non Reactive Non Reactive [facility] INSURANCE BILL Comment: HIV-1/HIV-2 antibodies and HIV-1 p24 antigen were NOT detected. There is no laboratory evidence of HIV infection. HIV Negative Blood BLOOD SPECIMEN / Unknown 09/29/2024 8:29 AM BILINGUAL HR GENERALIST 09/29/2024 Narrative [facility] INSURANCE BILL - 09/30/2024 6:09 AM BILINGUAL HR GENERALIST Performed at: [address] [place] [address], [place] [id number] Energy Consultant: Pipo Melo PhD, Phone: [phone] Sera Alegre MD LAB - CHEMISTRY ORDERABLES Performing Organization Address [facility] Co de Phone Number [facility] INSURANCE BILL [address] [place] [address] * TSH REFLEX FREE T4 (09/29/2024 8:29 AM BILINGUAL HR GENERALIST) Pathologist [facility] TSH 1.370 0.450 - 4.500 uIU/mL [facility] INSURANCE BILL Blood BLOOD SPECIMEN / Unknown 09/29/2024 8:29 AM BILINGUAL HR GENERALIST 09/29/2024 Narrative [facility] INSURANCE BILL - 09/30/2024 6:09 AM BILINGUAL HR GENERALIST Performed at: [address] [place] [id number] Energy Consultant: Pipo Melo PhD, Phone: [phone] Sera Alegre MD LAB - CHEMISTRY ORDERABLES Performing Organization Address [facility] Co de Phone Number [facility] INSURANCE BILL [address] [place] [address] * HEMOGLOBIN A1C (09/29/2024 8:29 AM BILINGUAL HR GENERALIST) [facility] Hemoglobin A1c 5.5 4.8 - 5.6 % [facility] INSURANCE BILL Comment: Prediabetes: 5.7 - 6.4 Diabetes: >6.4 Glycemic control for adults with diabetes: <7.0 Blood BLOOD SPECIMEN WITH EDTA / Unknown 09/29/2024 8:29 AM BILINGUAL HR GENERALIST 09/29/2024 Narrative [facility] INSURANCE BILL - 09/30/2024 6:09 AM BILINGUAL HR GENERALIST Performed at: [address] [id number] Energy Consultant: Pipo Melo PhD, Phone: [phone] Sera Alegre MD LAB - CHEMISTRY ORDERABLES Performing Organization Address City/[facility]/ZIP Co de Phone Number [facility] INSURANCE BILL [address] [place] [address] * CBC WITH DIFFERENTIAL (09/29/2024 8:29 AM BILINGUAL HR GENERALIST) WBC 5.6 3.4 - 10.8 x10E3/uL [facility] [...] BLOOD SPECIMEN / Unknown 09/29/2024 8:29 AM BILINGUAL HR GENERALIST 09/29/2024 Narrative [facility] INSURANCE BILL - 09/30/2024 12:06 AM BILINGUAL HR GENERALIST Performed at: - [address] [id number] Energy Consultant: Pipo Melo PhD, Phone: [phone] Sera Alegre MD LAB - HEMATOLOG Y ORDERABLES [facility] INSURANCE BILL [address] [place] [address] * COMPREHENSIVE METABOLIC PANEL (09/29/2024 8:29 AM BILINGUAL HR GENERALIST) Glucose 94 70 - 99 mg/dL [facility] [...] BLOOD SPECIMEN / Unknown 09/29/2024 8:29 AM BILINGUAL HR GENERALIST 09/29/2024 Narrative [facility] INSURANCE BILL - 09/30/2024 6:09 AM BILINGUAL HR GENERALIST Performed at: 01 - [address] [id number] Energy Consultant: Pipo Melo PhD, Phone: [phone] Sera Alegre MD LAB - CHEMISTRY ORDERABLES [facility] INSURANCE BILL [address] [place] [address] * (ABNORMAL) LIPID PROFILE (09/29/2024 8:29 AM BILINGUAL HR GENERALIST) Cholesterol 205(H) 100 - 199 mg/dL [facility] INSURANCE BILL Triglycerides 172(H) 0 - 149 mg/dL [facility] INSURANCE BILL HDL Cholesterol 45 >39 mg/dL [facility] INSURANCE BILL VLDL Calculated 31 5 - 40 mg/dL [facility] INSURANCE BILL LDL Calculated 129(H) 0 - 99 mg/dL [facility] INSURANCE BILL Blood BLOOD SPECIMEN / Unknown 09/29/2024 8:29 AM BILINGUAL HR GENERALIST 09/29/2024 Narrative [facility] INSURANCE BILL - 09/30/2024 6:09 AM BILINGUAL HR GENERALIST Performed at: 01 - [facility] [id number] Energy Consultant: Pipo Melo PhD, Phone: [phone] Sera Alegre MD LAB - CHEMISTRY ORDERABLES Performing Organization Address City/State/[facility] Co de Phone Number [facility] INSURANCE BILL [address] [place] [address] from Last 3 Months Care Teams Shopfitter Relationship Specialty Start Date End Date Sera Alegre MD [facility] [place] [address] PCP - General Internal Medicine 09/24/24
== END 2024-11-13 10:02 | disposition home or self-care (01) ==
LOC: ANHSURGERY 10:04
PROVIDERS: Visit Provider Surgery
DX: K42.9 Umbilical hernia without obstruction or gangrene (principal)
CPT/HCPCS: 36415; 86850; 86900; 86901

== ENCOUNTER 2024-11-25 01:01 | Day surgery (SDC) | payer BC, SELFPAY ==
--- NOTE | 2024-11-12 16:24 | SUR.PREOP ---
Report to the Outpatient Waiting Room, entrance under the green pavilion located off [facility], at time ___729____ on date ___11/25/24____. Planned Procedure Time: .? Time changes happen often and if your time is changed the preop area will call you the afternoon before. - You and your visitor will be asked to self-screen and do not enter if you have any COVID symptoms. Please call surgeon if you need to reschedule. - A mask is optional within the hospital at this time. Patients may have clear liquids (water, carbonated beverages, clear teas, apple juice) until 3 hours prior to surgery with a maximum of 20 ounces. - NO CLEAR LIQUIDS AFTER 0630 - No food from midnight until time of surgery and no smoking, or chewing tobacco (or any form of nicotine). No chewing gum, candy or mints. - Infants may have breast milk until 4 hours before surgery, infant formula 6 hours prior to surgery. - Children will be allowed to drink immediately following surgery.? If applicable, please bring a bottle or sippy cup to assist with drinking. Juice, water, soda, and popsicles are readily available.? For infants on formula, please bring formula the day of surgery.? Pacifiers are allowed. Take only the following medications with a SIP of water on the morning of surgery: N/A DO NOT STOP ANY OF YOUR OTHER PRESCRIPTION MEDICATIONS PRIOR TO SURGERY EXCEPT THE FOLLOWING Hold all vitamins and supplements for 3 days per anesthesiologist. Medications to discontinue per physician N/A Date to take last dose Please no make-up, nail tunisian, hairspray, perfume, deodorant, or body powder the day of surgery.? No jewelry (including any body piercings) or valuables the day of surgery, leave them at home.? Please take a shower or bath the night before, or the morning of, surgery with an antibacterial soap.? Wear comfortable, loose fitting clothing.? Children are encouraged to wear pajamas. - Jewelry must be removed prior to entering the operating room.? Rings and piercings that are not removed may be cut off. - The hospital will not accept responsibility for valuables.? - Please leave all valuables, including medications, at home the day of surgery. If you are going home after surgery, a licensed bus driver school must drive you home.? - NO public transportation without another adult if you receive anesthesia. - We recommend that an adult stay with you for 24 hours following discharge. - We also recommend that you do not drive, make important decision, drink alcoholic beverages, or take any drugs that were not prescribed by your health care provider for at least 24 hours after your discharge time. For Pediatric surgeries, we recommend two adults accompany the child home. Follow any additional instructions given to you from your surgeon. Telephone instructions given to ALEXEY BRANDON and asked if any additional questions and then verbalized understanding. Patient advised to call surgeon office or pre surgery nurse liaison [phone] if any additional questions.
[2024-11-12 16:46] VITALS: BMI 33.0
[2024-11-25] VITALS (13 sets, daily range): BP systolic 116–130; BP diastolic 62–82; PULSE 65–87; RESP 12–24; TEMP 36.2–36.3; O2SAT 90–100
--- OUTSIDE RECORDS SUMMARY | 2024-11-25 01:03 | XMS_ITS | Clinical Summary ---
Author Organization [facility] Address [address] [place] [address] Care Team Providers Care Patrol Guard Name Role Phone Sera Alegre MD Primary Care Provider Source Comments [facility],non-owned Affiliates and Associated Physician Practices is amultiple site organization consisting of ambulatory clinics and hospital sitesin [place], [place], [place] and [place]. This disclosure is being madepursuant to the Care Everywhere program and may not contain all information available regarding this patient. Last updated 18.[facility] Allergies No known active allergies Medications * Be aware that medications may not be up to date on this document. Alwaysverify current medications with the patient. Medication Sig Dispensed Refills Start Date End Date Status Loratadine (Claritin) 10 MG 09/24/2017 Active montelukast (Singulair) 10 MG tablet 09/24/2019 Active vitamin D, ergocalciferol, (Drisdol) 1.25 MG (29008 UT) capsule Take 1 (one) capsule by [...] Department Care Team Description 09/24/2024 10:40 AM LABOR AND DELIVERY NURSE Office Visit [facility] Medical [facility] - Family Medicine [address] [facility], [address] [address] Sera Alegre MD Encounter to [...] Comments Blood Pressure 134/84 09/24/2024 10:51 AM LABOR AND DELIVERY NURSE Pulse 80 09/24/2024 10:51 AM LABOR AND DELIVERY NURSE Temperature - - Respiratory Rate - - Oxygen Saturation 97% 09/24/2024 10:51 AM LABOR AND DELIVERY NURSE Inhaled Oxygen Concentration - - Weight 123.8 kg (273 lb) 09/24/2024 10:51 AM LABOR AND DELIVERY NURSE Height 193 cm (6' 4 ) 09/24/2024 10:51 AM LABOR AND DELIVERY NURSE Body Mass Index 33.23 09/24/2024 10:51 AM LABOR AND DELIVERY NURSE Plan of Treatment Health Maintenance Due Date [...] P24 AG PANEL Routine 09/29/2024 8:29 AM LABOR AND DELIVERY NURSE Healthcare maintenance HEPATITIS C ANTIBODY W RFLX PCR Routine 09/29/2024 8:29 AM LABOR AND DELIVERY NURSE Healthcare maintenance TSH REFLEX FREE T4 Routine 09/29/2024 8: 29 AM LABOR AND DELIVERY NURSE Healthcare maintenance Class 1 obesity due to excess calories with body mass index (BMI) of 33.0 to 33.9 in adult, unspecified whether serious comorbidity present LIPID PROFILE Routine 09/29/2024 8:29 AM LABOR AND DELIVERY NURSE Healthcare maintenance HEMOGLOBIN A1C Routine 09/29/2024 8:29 AM LABOR AND DELIVERY NURSE Healthcare maintenance Class 1 obesity due to excess calories with body mass index (BMI) of 33.0 to 33.9 in adult, unspecified whether serious comorbidity present COMPREHENSIVE METABOLIC PANEL Routine 09/29/2024 8:29 AM LABOR AND DELIVERY NURSE Healthcare maintenance CBC W AUTO DIFFERENTIAL Routine 09/29/2024 8:29 AM LABOR AND DELIVERY NURSE Healthcare maintenance from Last 3 Months Results * HEPATITIS C ANTIBODY W RFLX PCR (09/29/2024 8:29 AM LABOR AND DELIVERY NURSE) Hepatitis C Antibody Non Reactive Non Reactive [facility] INSURANCE BILL Comment: Performed at: - [address] [id number] Deck Mate: Pipo Melo PhD, Phone: [phone] Interpretation Comment [facility] INSURANCE BILL Comment: Not infected with HCV unless early or acute infection is suspected (which may be delayed in an immunocompromised individual), or other evidence exists to indicate HCV infection. Blood BLOOD SPECIMEN / Unknown 09/29/2024 8:29 AM LABOR AND DELIVERY NURSE 09/29/2024 Narrative [facility] INSURANCE BILL - 09/30/2024 6:09 AM LABOR AND DELIVERY NURSE Performed at: [address] [place] [id number] Deck Mate: Pipo Melo PhD, Phone: [phone] Sera Alegre MD LAB - CHEMISTRY ORDERABLES [facility] INSURANCE BILL [address] [place] [address] * HIV-1 HIV-2 ANTIBODY + HIV P24 AG PANEL (09/29/2024 8:29 AM LABOR AND DELIVERY NURSE) Pathologist [facility] HIV Screen 4th Generation w Reflex Non Reactive Non Reactive [facility] INSURANCE BILL Comment: HIV-1/HIV-2 antibodies and HIV-1 p24 antigen were NOT detected. There is no laboratory evidence of HIV infection. HIV Negative Blood BLOOD SPECIMEN / Unknown 09/29/2024 8:29 AM LABOR AND DELIVERY NURSE 09/29/2024 Narrative [facility] INSURANCE BILL - 09/30/2024 6:09 AM LABOR AND DELIVERY NURSE Performed at: [address] [place] [address], [place] [id number] Deck Mate: Pipo Melo PhD, Phone: [phone] Sera Alegre MD LAB - CHEMISTRY ORDERABLES Performing Organization Address [facility] Co de Phone Number [facility] INSURANCE BILL [address] [place] [address] * TSH REFLEX FREE T4 (09/29/2024 8:29 AM LABOR AND DELIVERY NURSE) Pathologist [facility] TSH 1.370 0.450 - 4.500 uIU/mL [facility] INSURANCE BILL Blood BLOOD SPECIMEN / Unknown 09/29/2024 8:29 AM LABOR AND DELIVERY NURSE 09/29/2024 Narrative [facility] INSURANCE BILL - 09/30/2024 6:09 AM LABOR AND DELIVERY NURSE Performed at: [address] [place] [id number] Deck Mate: Pipo Melo PhD, Phone: [phone] Sera Alegre MD LAB - CHEMISTRY ORDERABLES Performing Organization Address [facility] Co de Phone Number [facility] INSURANCE BILL [address] [place] [address] * HEMOGLOBIN A1C (09/29/2024 8:29 AM LABOR AND DELIVERY NURSE) [facility] Hemoglobin A1c 5.5 4.8 - 5.6 % [facility] INSURANCE BILL Comment: Prediabetes: 5.7 - 6.4 Diabetes: >6.4 Glycemic control for adults with diabetes: <7.0 Blood BLOOD SPECIMEN WITH EDTA / Unknown 09/29/2024 8:29 AM LABOR AND DELIVERY NURSE 09/29/2024 Narrative [facility] INSURANCE BILL - 09/30/2024 6:09 AM LABOR AND DELIVERY NURSE Performed at: [address] [id number] Deck Mate: Pipo Melo PhD, Phone: [phone] Sera Alegre MD LAB - CHEMISTRY ORDERABLES Performing Organization Address City/[facility]/ZIP Co de Phone Number [facility] INSURANCE BILL [address] [place] [address] * CBC WITH DIFFERENTIAL (09/29/2024 8:29 AM LABOR AND DELIVERY NURSE) WBC 5.6 3.4 - 10.8 x10E3/uL [facility] [...] BLOOD SPECIMEN / Unknown 09/29/2024 8:29 AM LABOR AND DELIVERY NURSE 09/29/2024 Narrative [facility] INSURANCE BILL - 09/30/2024 12:06 AM LABOR AND DELIVERY NURSE Performed at: - [address] [id number] Deck Mate: Pipo Melo PhD, Phone: [phone] Sera Alegre MD LAB - HEMATOLOG Y ORDERABLES [facility] INSURANCE BILL [address] [place] [address] * COMPREHENSIVE METABOLIC PANEL (09/29/2024 8:29 AM LABOR AND DELIVERY NURSE) Glucose 94 70 - 99 mg/dL [facility] [...] BLOOD SPECIMEN / Unknown 09/29/2024 8:29 AM LABOR AND DELIVERY NURSE 09/29/2024 Narrative [facility] INSURANCE BILL - 09/30/2024 6:09 AM LABOR AND DELIVERY NURSE Performed at: 01 - [address] [id number] Deck Mate: Pipo Melo PhD, Phone: [phone] Sera Alegre MD LAB - CHEMISTRY ORDERABLES [facility] INSURANCE BILL [address] [place] [address] * (ABNORMAL) LIPID PROFILE (09/29/2024 8:29 AM LABOR AND DELIVERY NURSE) Cholesterol 205(H) 100 - 199 mg/dL [facility] INSURANCE BILL Triglycerides 172(H) 0 - 149 mg/dL [facility] INSURANCE BILL HDL Cholesterol 45 >39 mg/dL [facility] INSURANCE BILL VLDL Calculated 31 5 - 40 mg/dL [facility] INSURANCE BILL LDL Calculated 129(H) 0 - 99 mg/dL [facility] INSURANCE BILL Blood BLOOD SPECIMEN / Unknown 09/29/2024 8:29 AM LABOR AND DELIVERY NURSE 09/29/2024 Narrative [facility] INSURANCE BILL - 09/30/2024 6:09 AM LABOR AND DELIVERY NURSE Performed at: 01 - [facility] [id number] Deck Mate: Pipo Melo PhD, Phone: [phone] Sera Alegre MD LAB - CHEMISTRY ORDERABLES Performing Organization Address City/State/[facility] Co de Phone Number [facility] INSURANCE BILL [address] [place] [address] from Last 3 Months Care Teams Patrol Guard Relationship Specialty Start Date End Date Sera Alegre MD [facility] [place] [address] PCP - General Internal Medicine 09/24/24
--- OUTSIDE RECORDS SUMMARY | 2024-11-25 01:03 | XMS_ITS | Encounter Summary ---
Author Organization [facility] Address [facility] [place] [address] Care Team Providers Care Jump Iron Machine Presser Name Role Phone Anais Welch- Primary Care Provider Filomena Shelley MD Primary Care Provider [phone] Encounter Details Date Type Department Care Team (Late st Contact Info) Description 03/21/2024 Content Syndicate: Words on Demand Message Enc [facility] Medical [facility] Family Medicine [address] [address] Anais Welch FNP-BC Pain in [...] documented as of this encounter Care Teams Jump Iron Machine Presser Relationship Specialty Start Date End Date Anais Welch FNP-BC PCP - General NURSE PRACTITIONER 11/14/18 05/03/24 Filomena Warren MD [address] [place] [address] PCP - General FAMILY PRACTICE 05/04/24 documented as of this encounter
--- OUTSIDE RECORDS SUMMARY | 2024-11-25 01:03 | XMS_ITS | Encounter Summary ---
Author Organization [facility] Address [address] [place] [address] Care Team Providers Care Cutting Pressman Name Role Phone [facility] Primary Care Provider Filomena Shelley MD Primary Care Provider [phone] Encounter Details Date Type Department Care Team (Late st Contact Info) Description 07/09/2023 Commun.it Message Enc [facility] Medical [facility] Family [address] [address] Anais Welch FNP-BC Blood work [...] documented as of this encounter Care Teams Cutting Pressman Relationship Specialty Start Date End Date Anais Welch FNP-BC PCP - General NURSE PRACTITIONER 11/14/18 05/03/24 Filomena Warren MD [address] [place] [address] PCP - General FAMILY PRACTICE 05/04/24 documented as of this encounter
--- OUTSIDE RECORDS SUMMARY | 2024-11-25 01:03 | XMS_ITS | Encounter Summary ---
Author Organization [facility] Address [facility] [place] [address] Care Team Providers Care Branch Store Manager Name Role Phone Anais Welch Primary Care Provider Filomena Shelley MD Primary Care Provider [phone] Encounter Details Date Type Department Care Team (Late st Contact Info) Description 06/28/2023 Colppy Message Enc [facility] Medical [employer] Family [address] [address] Anais Welch FNP-BC Injury to [...] Total Score: 0 07/20/20 21 8:02 AM SURGICAL ELASTIC KNITTER documented as of this encounter Care Teams Branch Store Manager Relationship Specialty Start Date End Date Anais Welch FNP-BC PCP - General NURSE PRACTITIONER 11/14/18 05/03/24 Filomena Warren MD [address] [place] [address] PCP - General FAMILY PRACTICE 05/04/24 documented as of this encounter
--- OUTSIDE RECORDS SUMMARY | 2024-11-25 01:03 | XMS_ITS | Encounter Summary ---
Author Organization [facility] Address [facility] [place] [address] Care Team Providers Care Health Careers Instructor Name Role Phone [facility] Primary Care Provider Filomena Shelley MD Primary Care Provider [phone] Encounter Details Date Type Department Care Team (Late st Contact Info) Description 11/02/2022 Easy Food Message Enc [facility] Medical [facility] Family [address] [address] Anais Welch FNP-BC Question about [...] Coronavirus/COVID-19? No / Unsure 11/03/2022 3:19 PM TODDLER CAREGIVER documented as of this encounter Plan of Treatment Not on file documented as of this encounter Visit Diagnoses Not on filedocumented in this encounter Additional Health Concerns Assessment Noted Time PHQ-9 Depression Total Score: 0 07/20/20 21 8:02 AM TODDLER CAREGIVER documented as of this encounter Care Teams Health Careers Instructor Relationship Specialty Start Date End Date [facility]ais [facility] PCP - General NURSE PRACTITIONER 11/14/18 05/03/24 Filomena Warren MD [address] [place] [address] PCP - General FAMILY PRACTICE 05/04/24 documented as of this encounter
--- OUTSIDE RECORDS SUMMARY | 2024-11-25 01:03 | XMS_ITS | Clinical Summary ---
Author Organization [facility] Address [address] [place] [address] Care Team Providers Care Lawyer Criminal Name Role Phone Filomena Warren MD Primary Care Provider [phone] Allergies No known active allergies Medications vitamin D2, ergocalciferol, (DRISDOL) 02942 UNITS capsuleIndicatio ns:Vitamin D deficiency TAKE 1 [...] from the original. [facility] [place] Problem Noted Date Diagnosed Date History of [...] 36.8 C (98.2 F) 11/03/2022 3:21 PM CLINIC OFFICE COORDINATOR Respiratory Rate 12 07/05/2023 1:10 PM CDT [...] 07/04, 05/07/2020, Additional history exists PHQ-2 (Physician [place]) 09/03/2024 07/05/2023 HPV Vaccines Aged Out No [...] patient's age to complete this topic Insurance [facility] Care Teams Lawyer Criminal Relationship Specialty Start Date End Date Filomena Warren MD [address] [place] [address] PCP - General FAMILY PRACTICE 05/04/24
--- OUTSIDE RECORDS SUMMARY | 2024-11-25 01:03 | XMS_ITS | Encounter Summary ---
Author Organization [facility] Address [facility] [place] [address] Care Team Providers Care Nail Welter Name Role Phone Anais WelchGARY Primary Care Provider Filomena Shelley MD Primary Care Provider [phone] Encounter Details Date Type Department Care Team (Late st Contact Info) Description 05/28/2020 [facility] Message Enc [facility] Medical [facility] Family [address] [id number] Anais Welch FNP-BC RE: Other [...] on filedocumented in this encounter Care Teams Nail Welter Relationship Specialty Start Date End Date Anais Welch FNP-BC PCP - General NURSE PRACTITIONER 11/14/18 05/03/24 Filomena Warren MD [address] [place] [address] PCP - General FAMILY PRACTICE 05/04/24 documented as of this encounter
--- NOTE | 2024-11-25 08:44 | P.PNAN_ITS ---
Anes - Initial Pre Proc Eval Procedure: Operation Date: 11/25/24 09:30 Proposed Procedures p Laparoscopic Umbilical Hernia Repair with Mesh, Davinci Assisted - Amrit Duran DO Date/Time: 11/25/24 08:44 Surgeon: Amrit Duran DO Pre Op Diagnosis: Umb Hernia Patient Data Age: 39 Gender: M Height: 1.93 m Weight: 123 kg Allergies Allergy/AdvReac Type Severity Reaction Status Date / Time Penicillins Allergy Hives Verified 11/12/24 16:53 Sulfa (Sulfonamide Allergy HIVES Verified 11/12/24 16:53 Antibiotics) Home Medications ?Medication ?Instructions ?Recorded ?Confirmed ?Type cholecalciferol (vitamin D3) 1,250 50,000 unit PO WEEKLY 11/12/24 11/12/24 History mcg (50,000 unit) tablet loratadine 10 mg tablet 10 mg PO DAILY 11/12/24 11/12/24 History (Allerclear) Patient hx anesthesia problems: none Family hx anesthesia problems: none Results Review: All pre-operative results and documents have been reviewed as part of the pre- operative evaluation. [facility] Past Medical History Medical History (Updated 11/25/24 @ 08:44 by Jm Morales MD) Obesity Allergies Surgical History Surgical History H/O vasectomy 2014 H/O removal of testicle 1995 Social History Social History (Updated 11/25/24 @ 08:44 by Jm Morales MD) Years smoked: 9 Smoking status: Former smoker Tobacco type: cigarettes Smoking end date: 09/03/17 Additional smoking assessment comments: LIGHT SMOKER IN THE PAST Alcohol intake: current Drinks per week: 3 Do You Feel Safe in your Home?: Yes Lack of Transportation: No Lack of Food: Never True Current Housing: I Have Housing Concerned About Future Housing: No Difficulty Paying Gas/Electric Bills: No Difficulty Paying for Meds: No Currently Unemployed: No Education: Bachelor's Degree Difficulty w/ Childcare or Family Care: No Living arrangements: with family Spiritual care concerns: No Anes - Eval Final PreProcedure Day of Procedure 11/25/24 08:44 Patient weight: obese Heart: regular rate and rhythm Lungs: clear to auscultation Airway: Mallampati scale Neurological: alert and oriented Last oral intake: >/= 8 hours ASA classification: III Emergent: no Anesthetic plan: proceed Anesthesia type and monitoring: general ETT and standard monitoring Results Review: All pre-operative results and documents have been reviewed as part of the pre- operative evaluation. Informed Consent: The patient's anesthetic plan and its attendant risks and benefits were discussed with the patient/family/POA. Questions were solicited and answers provided to the satisfaction of the patient/family/POA.
[2024-11-25] MEDS: KETOROLAC 15 MG/ML VIAL (*BKC) IV PUSH (09:00)
[2024-11-25] MEDS: LACTATED RINGERS 1,000 ML 30 ML IV CONT ×2 (09:00→12:12)
[2024-11-25] MEDS: ACETAMINOPHEN 500 MG TABLET 1000 MG PO (09:00)
--- NOTE | 2024-11-25 09:37 | WPDHPUPDATE1 ---
History and Physical Update Update Date/Time: 11/25/24 09:37 History and Physical has been reviewed, including an updated exam of the patient. There are NO changes in the patient's condition. Risks, benefits, and alternatives have been discussed and questions answered. Patient agrees to proceed with procedure.
--- NOTE | 2024-11-25 09:37 | PM.IMHP ---
H&P: HPI History of Present Illness Date/Time: 11/25/24 09:37 Chief Complaint: Umbilical hernia Narrative: This is a 39-year-old man who presents with an umbilical hernia and rectus diastasis. He was noticing some pain and a bulge near his umbilicus and extending just superior to it. A CT was obtained which showed evidence of the umbilical hernia and diastasis. He now presents for repair. Review of Systems Review of Systems: All systems reviewed & are unremarkable except as noted in HPI and below Constitutional: Constitutional: Denies chills, Denies fever(s), Denies headache(s) and Denies weight loss Eyes: Eyes: Denies change in vision ENT: Denies dizziness, Denies headache(s), Denies neck mass and Denies throat swelling Cardiovascular: Cardiovascular: Denies chest pain, Denies lightheadedness and Denies dyspnea Respiratory: Respiratory: Denies cough, Denies dyspnea and Denies wheezing Gastrointestinal: Gastrointestinal: Denies abdominal pain, Denies change in bowel habits, Denies nausea and Denies vomiting Genitourinary: Genitourinary: Denies hematuria and Denies dysuria Musculoskeletal: Musculoskeletal: Reports as per HPI Integumentary/Breasts: Skin/Breast: Reports as per HPI Neurologic: Denies dizziness and Denies headache(s) Allergic/Immunologic: Allergic/Immunologic: Denies throat swelling and Denies wheezing PMF Past Medical History Medical History (Updated 11/25/24 @ 08:44 by Jm Morales MD) Obesity Allergies Surgical History Surgical History H/O vasectomy 2014 H/O removal of testicle 1995 Social History Social History (Updated 11/25/24 @ 08:44 by Jm Morales MD) Years smoked: 9 Smoking status: Former smoker Tobacco type: cigarettes Smoking end date: 09/03/17 Additional smoking assessment comments: LIGHT SMOKER IN THE PAST Alcohol intake: current Drinks per week: 3 Do You Feel Safe in your Home?: Yes Lack of Transportation: No Lack of Food: Never True Current Housing: I Have Housing Concerned About Future Housing: No Difficulty Paying Gas/Electric Bills: No Difficulty Paying for Meds: No Currently Unemployed: No Education: Bachelor's Degree Difficulty w/ Childcare or Family Care: No Living arrangements: with family Spiritual care concerns: No Meds Home Medications and Allergies Home Medications ?Medication ?Instructions ?Recorded ?Confirmed ?Type cholecalciferol (vitamin D3) 1,250 50,000 unit PO WEEKLY 11/12/24 11/12/24 History mcg (50,000 unit) tablet loratadine 10 mg tablet 10 mg PO DAILY 11/12/24 11/12/24 History (Allerclear) Allergies Allergy/AdvReac Type Severity Reaction Status Date / Time Penicillins Allergy Hives Verified 11/12/24 16:53 Sulfa (Sulfonamide Allergy HIVES Verified 11/12/24 16:53 Antibiotics) Exam Const: General: no acute distress and alert Orientation/consciousness: patient oriented x3 HENMT: Head: normocephalic and atraumatic Ears: hearing grossly normal bilaterally Face/Nose/Sinus: Normal nares present Mouth: Yes Normal oral and palatal mucosa present Eyes: Periorbital: periorbital findings normal Sclera: sclerae normal EOM: EOMs intact bilaterally Neck: Neck: normal visual inspection, no lymphadenopathy and trachea midline Chest: Chest palpation & inspection: normal inspection of the chest Resp: Effort & Inspection: normal respiratory effort Auscultation: clear to auscultation bilaterally Cardio: Jugular venous distension: no JVD Rate: regular rate Rhythm: regular rhythm Heart sounds: S1 normal heart sound present and S2 normal heart sound present Peripheral pulses: Peripheral pulses 2+ throughout GI: Inspection: normal to inspection GI Palp: Yes Soft to palpation, No Tenderness to palpation present (GI), No Guarding due to palpation present (GI), Yes Hernia present umbilical < 3 cm (Umbilical hernia with superior rectus diastasis) and No Rebound tenderness present Percussion: Yes normal to percussion Auscultation: normal bowel sounds : General: Yes no CVA tenderness Back/Spine/Pelvis: Back: no CVA tenderness Neuro: General: patient oriented x3, no focal motor deficits and CN's II-XI intact bilaterally Cognition (Neuro): normal cognition Speech: normal speech Motor exam (neuro): 5/5 motor strength present throughout Extrem: General: capillary refill normal and no clubbing, cyanosis or edema Assessment and Plan Assessment and plan (1) Umbilical hernia without mention of obstruction or gangrene: Qualifiers: Obstruction and gangrene presence: without obstruction or gangrene Qualified Code(s): K42.9 - Umbilical hernia without obstruction or gangrene Code(s): K42.9 - Umbilical hernia without obstruction or gangrene Status: Acute Assessment and Plan: I have recommended laparoscopic umbilical hernia repair with mesh, da Demetrio assisted. I have discussed the procedure, risks, benefits, and alternatives with the patient. All questions answered. No changes since last seen in office. (2) Rectus diastasis: Code(s): M62.08 - Separation of muscle (nontraumatic), other site Status: Acute
[2024-11-25] MEDS: ceFAZolin 3 GM/D5W 100 ML 100 ML IVPB (09:53)
--- NOTE | 2024-11-25 12:13 | P.OP_ITS ---
Procedure Note - Detailed Date of Procedure 11/25/24 Pre-op Diagnosis Umbilical hernia Post-op Diagnosis Same (4 cm umbilical hernia) Procedure Performed Laparoscopic 4 cm umbilical hernia repair with mesh, da Demetrio assisted Surgeon Amrit Duran DO Anesthesia General and Local (0.5% bupivacaine with epinephrine) Indications This is a 39-year-old man who presented with periumbilical pain and a bulge. He had noticed pain primarily at the umbilicus and slightly above. He was noted to have an umbilical hernia and about a 4 cm diastasis. Discussions were made with the patient about treatment options and decision was made to proceed with robotic assisted laparoscopic umbilical hernia repair with mesh. Findings Robotic assisted laparoscopic umbilical hernia repair with mesh was performed. The patient was found to have an umbilical hernia with a defect measuring about 4 cm wide. This extended on to a diastasis that was about 2 cm inferior to the umbilicus and 8 cm above the umbilicus. A robotic transabdominal preperitoneal approach was utilized for repair. A long running suture repair was performed using 0 Stratafix running absorbable suture. A 15 cm x 8 cm Bard soft mesh was placed. No specimens were obtained for pathology. Description of Procedure Procedure as well as risks, benefits, and alternatives were discussed with the patient. Written consent was obtained and placed in chart prior to procedure. Patient was brought back to surgical suite. He was placed supine on operating table. Time-out was done to confirm patient and procedure. He was then intubated by the anesthesia department. A bump was placed under his left hip, and the bed was flexed slightly to extend the space between his costal margin and iliac crest. His abdomen was prepped and draped in sterile fashion using chlorhexidine prep. A 5 millimeter incision was made in the left upper quadrant, and a 5 millimeter Optiview trocar was advanced through the abdominal layers under direct visualization. Once inside the abdominal cavity, carbon dioxide insufflation was used to create a pneumoperitoneum. His abdomen was inspected. An 8 millimeter incision was made in the left lower quadrant, and an 8 mil limeter robotic trocar was placed under direct visualization. Another 8 millimeter incision was made in the left lateral abdomen, and an 8 millimeter robotic trocar was placed under direct visualization. 0.5% bupivacaine with epinephrine was infiltrated around each port site. The 5 millimeter port was removed, and an 8 mm robotic trocar was placed under direct visualization. The robotic arms were brought up to the patient's bedside and secured to the ports. The camera and instruments were inserted, and I then moved over to the robotic console and took control of the camera and instruments. After careful thorough inspection of the abdominal cavity, I began my dissection at the hernia. A preperitoneal plane was started in the left upper quadrant using scissors with electrocautery. This plane was then extended caudally along the left lateral abdomen into the left lower quadrant. The plane was then dissected medially carefully using scissors with electrocautery. The hernia sac was reduced and then the dissection was carried out to the right lateral abdomen. I then measured the hernia size. The hernia measured 4 cm wide at the umbilicus. The fascia was closed using an 0-Stratafix running suture in a vertical fashion. I started the repair in the subxiphoid region to bring the rectus muscle together in the midline and this was run to about 3-4 cm caudal to the umbilicus. A Bard soft 15 cm by 8 cm mesh was then placed within the preperitoneal pocket. This was oriented vertically with the mesh centered on the hernia defect. The mesh was then secured at the center and 4 corners using 3-0 Vicryl simple interrupted sutures. The peritoneum was then closed over the mesh using 3 0 V lock running absorbable suture. The repair was inspected, and one final inspection was made around the abdominal cavity. The robotic instruments were then removed, and the robotic arms were disengaged from the trocars. The ports were then removed under direct visualization, the camera was removed, and the pneumoperitoneum was released. The skin of the incisions was then approximated using 4-0 Monocryl subcuticular suture. Exofin glue was then applied on top. The patient was then awakened from anesthesia, extubated, and transferred to recovery. Implants Bard soft mesh 15 cm x 8 cm Estimated Blood Loss 5 Complications No immediate complications Condition Stable Disposition Same day [facility] Billing Surgery - Charge Forward: Surgery Billing
[2024-11-25] MEDS: ONDANSETRON INJ 4 MG/2 ML VIAL IV PUSH (13:29)
[2024-11-25] MEDS: fentaNYL CITRATE INJ (*CRX) 100 MCG/2 ML VIAL 25 MCG IV PUSH ×2 (13:30→13:32)
[2024-11-25] MEDS: oxyCODONE HCL (*CRX) 5 MG TAB IR PO (14:15)
== END 2024-11-25 15:04 | disposition home or self-care (01) ==
PROVIDERS: Visit Provider Surgery
PROC: (CPT 49593; principal; 2024-11-25 09:30)
DX: K42.9 Umbilical hernia without obstruction or gangrene (principal); M62.08 Separation of muscle (nontraumatic), other site; E66.9 Obesity, unspecified; Z68.33 Body mass index [BMI] 33.0-33.9, adult; Z98.890 Other specified postprocedural states; Z87.891 Personal history of nicotine dependence
CPT/HCPCS: 49593; S2900; A9270; C1781; J0690; J1100; J1171; J1885; J2003; J2250; J2405; J2704; J3010; J7120